=== PATIENT | male | born 1965 | race Asian ===

== ENCOUNTER 2025-01-29 18:13 | Emergency (ER) | payer MEDICAID, OTHER ==
[~2025-01-29] VITALS: Ht 160 cm; Wt 63.5 kg
[2025-01-29] MEDS: IV NS 0.9% 1,000 ML BAG IV ONE (20:07)
[2025-01-29] MEDS: KETOROLAC TROMETHAMINE 15 MG/ML VIAL IV ONE (20:07)
[2025-01-29 20:36] LABS: PLATELET COUNT (AUTO) 216 K/uL (150-450); RED BLOOD CELL COUNT(AUTO) 4.96 MIL/uL (4.5-6.0); RED CELL DISTRIBUTION WIDTH 13.4 % (11.5-15.0); WHITE BLOOD COUNT (AUTO) 7.4 K/uL (4.3-11.0)
[2025-01-29 20:55] LABS: CALCIUM, SERUM 9.5 mg/dL (8.5-10.1); CREATININE 1.3 mg/dL (0.6-1.3); SODIUM SERUM 137.0 mmol/L (136-145); UREA NITROGEN, BLOOD 17.0 mg/dL (7-18)
[2025-01-29 22:14] VITALS: BP 137/84; TEMP 98.4; O2SAT 99
== END 2025-01-29 22:15 | disposition home or self-care (01) ==
LOC: ER 18:53
DX: S13.4XXA Sprain of ligaments of cervical spine, initial encounter (principal); M54.89 Other dorsalgia; I10 Essential (primary) hypertension; E78.00 Pure hypercholesterolemia, unspecified; E11.9 Type 2 diabetes mellitus without complications; V43.02XA Car driver injured in collision with other type car in nontraffic accident, initial encounter; Y93.89 Activity, other specified; Y92.89 Other specified places as the place of occurrence of the external cause; Y99.8 Other external cause status
CPT/HCPCS: 36415; 70450-TC; 80048-TC; 85025-TC; J1885; J7030